=== PATIENT | male | born 1980 | race Caucasian/White ===

== ENCOUNTER 2025-06-06 14:07 | Outpatient (CLI) | payer BC, MEDICAID, SELFPAY | END 2025-06-06 14:08 | disposition home or self-care (01) | LOC: SLEEP 14:11 | PROVIDERS: PCP Family Medicine; Referring Provider Family Medicine; Visit Provider Internal Medicine Pulmonary Disease | DX: G47.33 Obstructive sleep apnea (adult) (pediatric) (principal) | CPT/HCPCS: G0399 ==